=== PATIENT | male | born 1975 | race Caucasian/White ===

== ENCOUNTER 2016-12-30 16:49 | Emergency (ER) | payer OTHER ==
[~2016-12-30] VITALS: Ht 172.7 cm; Wt 93.4 kg
--- NOTE | 2016-12-30 17:00 | NUR ---
BIB SELF C/O NECK RADIATES TO L SHOULDER X 6 DAYS, WORSE TODAY, TINGLING SENSATION TO LEFT INDEX and THUMB. NAD NOTED, VSS, SKIN WARM AND DRY, RESP EVEN AND UNLABORED. WAITING FOR MD SOTO
[2016-12-30] MEDS ORDERED: IBUPROFEN 600 MG TABLET PO ONE ×2 (17:36→18:00)
[2016-12-30 17:51] VITALS: BP 127/85
== END 2016-12-30 17:55 | disposition home or self-care (01) ==
LOC: ER 16:51
DX: M54.2 Cervicalgia (principal); R20.0 Anesthesia of skin; F17.200 Nicotine dependence, unspecified, uncomplicated; Z90.89 Acquired absence of other organs
CPT/HCPCS: 99283; A4606; Z7610

== ENCOUNTER 2016-12-31 05:58 | Emergency (ER) | payer OTHER ==
[~2016-12-31] VITALS: Ht 172.7 cm; Wt 94.3 kg
[2016-12-31 06:14] VITALS: BP 118/76
[2016-12-31] MEDS ORDERED: HYDROCODONE/APAP 5/325MG 1 EACH TABLET ONE (06:28)
[2016-12-31] MEDS ORDERED: HYDROCODONE/APAP 5/325MG 1 EACH TABLET PO ONE (06:30)
== END 2016-12-31 06:34 | disposition home or self-care (01) ==
LOC: ER 06:00
DX: M25.512 Pain in left shoulder (principal); F17.200 Nicotine dependence, unspecified, uncomplicated; Z90.89 Acquired absence of other organs
CPT/HCPCS: A4606; Z7610

== ENCOUNTER 2018-06-01 13:31 | Emergency (ER) | payer OTHER ==
[~2018-06-01] VITALS: Ht 172.7 cm; Wt 99.8 kg
--- NOTE | 2018-06-01 13:46 | NUR ---
PT BROUGHT IN WITH FRIEND FOR C/C C/O L FOOT PAIN, PENILE PAIN, ITCHING AND BURNING ON URINATION X 5 DAYS IN WHEEL CHAIR .
[2018-06-01] MEDS ORDERED: HYDROCODONE/APAP 5/325MG 1 EACH TABLET ONE (14:35)
[2018-06-01] MEDS ORDERED: FLUCONAZOLE (100 MG) 100 MG TABLET ONE (14:35)
[2018-06-01] MEDS ORDERED: IBUPROFEN 600 MG TABLET PO ONE ×2 (14:35)
[2018-06-01] MEDS: FLUCONAZOLE (100 MG) 100 MG TABLET PO ONE (14:37)
[2018-06-01 15:13] LABS: BILIRUBIN,URINE Negative (NEGATIVE); BLOOD, URINE Trace-lysed Ery/uL (NEGATIVE); COLOR,URINE Yellow (YELLOW); KETONES,URINE Trace (NEGATIVE); LEUKOCYTE ESTERASE ,URINE Negative (NEGATIVE); NITRITE, URINE Negative (NEGATIVE); PH,URINE 5.5 (5.0-8.0); PROTEIN,URINE Negative (NEGATIVE); UGLUCOSE >=1000 mg/dL (NEGATIVE); UROBILINOGEN,URINE 0.2 EU/dL (0.2)
[2018-06-01 15:14] LABS: APPEARANCE,URINE SLIGHTLY HAZY (CLEAR)
[2018-06-01] MEDS: IBUPROFEN 600 MG TABLET PO ONE (15:22)
[2018-06-01] MEDS ORDERED: INSULIN REGULAR, HUMAN 100 UNIT/ML 10 ML VIAL ONE ×2 (15:25→16:37)
[2018-06-01] MEDS: HYDROCODONE/APAP 5/325MG 1 EACH TABLET PO ONE (15:26)
[2018-06-01] MEDS: INSULIN REGULAR, HUMAN 100 UNIT/ML 10 ML VIAL SQ ONE (15:27)
[2018-06-01 15:40] LABS: BACTERIA,URINE Few /HPF (None Seen); SQUAMOUS EPITHELIAL CELL,UR Few /HPF (None Seen); WBC,URINE 0-2 /HPF (0-3)
[2018-06-01 17:28] VITALS: BP 129/72
== END 2018-06-01 17:30 | disposition home or self-care (01) ==
LOC: ER 13:33
DX: M25.572 Pain in left ankle and joints of left foot (principal); L30.8 Other specified dermatitis; E11.9 Type 2 diabetes mellitus without complications; F17.200 Nicotine dependence, unspecified, uncomplicated; Z90.89 Acquired absence of other organs
CPT/HCPCS: 36415; 73600; 73630; 81001; 82962 ×2; 84550; 96372; 99284; A4606; J1815; 81000-TC